=== PATIENT | female | born 1975 | race Caucasian/White ===

== ENCOUNTER 2020-07-15 07:31 | Emergency (ER) | payer BC ==
[2020-07-15] MEDS ORDERED: AUGMENTIN 875-1 EACH PO (08:18)
[2020-07-15] MEDS ORDERED: IBUPROFEN800 MG PO (08:18)
[2020-07-15] MEDS ORDERED: VIBRAMYCIN 100100 MG PO (09:00)
[2020-07-15] MEDS ORDERED: FLAGYL500 MG PO (09:00)
== END 2020-07-15 10:13 | disposition home or self-care (01) ==
LOC: ER1 07:31
DX: S61.451A Open bite of right hand, initial encounter (principal); S71.151A Open bite, right thigh, initial encounter; S80.211A Abrasion, right knee, initial encounter; E10.9 Type 1 diabetes mellitus without complications; Z23 Encounter for immunization; W54.0XXA Bitten by dog, initial encounter; Y92.009 Unspecified place in unspecified non-institutional (private) residence as the place of occurrence of the external cause
CPT/HCPCS: 90376; 90471; 90675; 90714; 96365; 96372; 99283; J0295